=== PATIENT | male | born 2000 ===

== ENCOUNTER 2018-02-18 10:44 | Day surgery (SDC) | payer OTHER ==
[2018-02-18 11:18] VITALS: BMI 20.2
[2018-02-18 11:25] VITALS: PULSE 64; RESP 18
[2018-02-18] MEDS ORDERED: Iohexol 300 100 ML IJ ONE (12:31)
[2018-02-18] MEDS ORDERED: Sodium Chloride 0.9% 50 ML IV ONE (12:31)
[2018-02-18] MEDS ORDERED: Lidocaine Hydrochloride 1% 10 ML ONE (13:12)
--- NOTE | 2018-02-18 13:24 | CP.SDSHP ---
Same Day Surgery H & P - History Proposed Procedure: US guided FNA of neck lymph node Pre-Op Diagnosis: Lymphadenopathy - Allergies Allergies: Allergies No Known Allergies Allergy (Verified 02/18/18 11:18) - Physical Exam Vital Signs: Vital Signs 02/18/18 02/18/18 11:24 11:29 Temperature 98.5 F Pulse Rate 64 64 Respiratory 18 Rate Blood Pressure 131/73 O2 Sat by Pulse 100 Oximetry - Impression Impression: Pt with cervical lymphadenopathy referred for FNA. Plan FNA of enlarged right submandibular node. Pt. Evaluated Today:Candidate for Anesthesia & Procedure: No Short Stay Discharge - Short Stay Discharge Admitting Diagnosis/Reason for Visit: R59.0 Disposition: HOME/ ROUTINE Referrals: Bill Maldonado MD [Primary Care Provider] -
--- NOTE | 2018-02-18 13:26 | PCM.SURG1 ---
Surgeon's Initial Post Op Note - Surgeon's Notes Surgeon: Contreras Staton MD Water Leak Repairer: NONE Type of Anesthesia: Local Pre-Operative Diagnosis: Cercival lymphadenopathy Operative Findings: US showed an enlarged righ neck submandibular lymph node. Post-Operative Diagnosis: Cervical lymphadenopathy Operation Performed: US guided FNA Specimen/Specimens Removed: 25 g FNA x 5 passes Estimated Blood Loss: EBL {In ML}: 1 Blood Products Given: N/A Drains Used: No Drains Post-Op Condition: Good Date of Surgery/Procedure: 02/18/18 Time of Surgery/Procedure: 13:20
[2018-02-18 13:51] VITALS: BP 124/67; TEMP 98.2; O2SAT 98
--- NOTE | 2018-02-18 15:45 | CT ---
Date of service: 02/18/2018 PROCEDURE: CT NECK WITH CONTRAST HISTORY: N59.0 COMPARISON: None available. TECHNIQUE: CT of the neck with intravenous contrast. Coronal and sagittal reformats generated. Intravenous contrast dose: 90 cc Omnipaque Radiation dose: DLP 297.49 mGy-cm This CT exam was performed using one or more of the following dose reduction techniques: Automated exposure control, adjustment of the mA and/or kV according to patient size, and/or use of iterative reconstruction technique. FINDINGS: NASOPHARYNX: Within normal limits. SUPRAHYOID NECK: There is enlargement of both palatine tonsils, right larger than left. There is an apparent 1.4 x 1.0 cm hypoenhancing area in the right lateral palatine tonsil. There is another 1.1 x 0.8 cm hypoenhancing area in the medial palatine tonsil. There is no mass or abnormal enhancement in the oropharynx, oral cavity, parapharyngeal space and retropharyngeal space. INFRAHYOID NECK: There is no mass or abnormal enhancement in the larynx, hypopharynx, and supraglottic space. Vocal cords intact. GLANDS: Parotid and submandibular glands unremarkable. Normal size thyroid gland, without nodule. LYMPH NODES: There is an enlarged right submandibular lymph node measuring 1.8 cm in short axis and 2.7 cm in long axis. CERVICAL SPINE: No fracture or focal lesion. VASCULAR STRUCTURES: There is normal intravascular enhancement. OTHER FINDINGS: None. IMPRESSION: 1. Findings are most compatible with tonsillitis, worse on the right. 1.4 x 1.0 cm and 1.1 x 0.8 cm phlegmon/developing right peritonsillar abscesses. 2. 1.8 x 2.7 cm right submandibular lymph node is likely reactive in etiology.
--- NOTE | 2018-02-19 14:40 | VASCULAR ---
PROCEDURE: Date of procedure: 02/18/2018 Procedure: Ultrasound-guided FNA of right supraclavicular lymph node, CPT 55030 Ultrasound guidance for biopsy, [id number] Medications: 3cc 1% Lidocaine HISTORY: Multiple cervical lymph nodes with a 3 cm right cervical lymph node. TECHNIQUE: Following informed consent and procedure time-out, limited ultrasound patient's right neck demonstrates an enlarged lymph nodes which is ovoid shape and hypoechoic. The lymph node measures 3 cm in the right neck. The patient's neck was prepped and draped in the usual sterile fashion. The skin was anesthetized with 1 percent lidocaine. Ultrasound-guided fine needle aspiration was then performed using a 25 gauge needle. A total of 4 passes were made into the lymph node under direct ultrasound guidance. FNA specimens were obtained and sent for routine pathology. A post biopsy ultrasound showed no hematoma IMPRESSION: Ultrasound-guided biopsy of enlarged right neck lymph node.
== END 2018-02-18 14:15 | disposition home or self-care (01) ==
LOC: H.OPSURG 10:44
PROVIDERS: ATTEND Nurse Practitioner
DX: R59.0 Localized enlarged lymph nodes (principal)
CPT/HCPCS: 10022; 70491; 76942; 88104; 88305; Q9967